=== PATIENT | male | born 2000 ===

== ENCOUNTER 2022-07-28 14:02 | Emergency (ER) | payer SELFPAY ==
[~2022-07-28] VITALS: Ht 182.8 cm; Wt 72.5 kg
--- NOTE | 2022-07-28 14:21 | ED GI ---
General Chief Complaint: Abdominal/GI Problems Stated Complaint: ABD PAIN Nursing Triage Note: THURSDAY STARTED HAVING ABDOMINAL PAIN WITH NAUSEA AND VOMTING. 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 Patient states he drank alcohol and used drugs at that time. He states he has had frequent vomiting since that time. He denies any diarrhea. States he has been unable to eat or drink much since the symptoms began. Denies any blood in the vomit or stools. States he does frequently use cannabis. Denies any fever. Allergies and Home Medications Allergies Coded Allergies: No Known Drug Allergies (Unverified , 07/28/22) Patient Home Medication List Home Medication List Reviewed: Yes Ondansetron (Ondansetron Odt) 4 Mg Tab.rapdis, 4 MG SL Q4H PRN for NAUSEA/VOMITING Prescribed by: Hernesto Daniel on 07/28/22 1641 Pantoprazole Sodium (Protonix) 40 Mg Tablet.dr, 40 MG PO DAILY Prescribed by: Hernesto Daniel on 07/28/22 1641 Review of Systems Review of Systems Constitutional: no symptoms reported EENTM: No Symptoms Reported Respiratory: No Symptoms Reported Cardiovascular: No Symptoms Reported Gastrointestinal: See HPI Genitourinary: No Symptoms Reported Musculoskeletal: no symptoms reported Skin: no symptoms reported Psychiatric/Neurological: No Symptoms Reported Past Terjfxg-Oohxot-Eekcsl Hx Patient Social History Tobacco Use?: No Use of E-Cig and/or Vaping dev: No Substance use?: No Substance type: Marijuana Substance frequency: Daily Alcohol Use?: Yes Alcohol Frequency: Once in a while Pt feels they are or have been: No Immunizations Up To Date Influenza Vaccine Up-to-Date: No; Not Current First/Initial COVID19 Vaccinat: NONE Past Medical History Surgery/Hospitalization HX: DENIES MEDICAL HX Physical Exam Vital Signs Vital Signs - First Documented 07/28/22 14:05 Temp 37.0 Pulse 75 Resp 18 B/P (MAP) 138/85 (102) Pulse Ox 100 O2 Delivery Room Air Capillary Refill : Less Than 3 Seconds Height/Weight/BMI Height: '" Weight: lbs. oz. 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, no motor/sensory deficits, alert Skin: normal color, warm/dry Progress/Results/Core Measures Results/Orders Lab Results Laboratory Tests Test 07/28/22 14:20 07/28/22 14:35 Range/Units White Blood Count 13.0 H 4.3-11.0 10^3/uL Red Blood Count 5.57 H 4.30-5.52 10^6/uL Hemoglobin 16.6 13.3-17.7 g/dL Hematocrit 49 40-54 % Mean Corpuscular Volume 88 80-99 fL Mean Corpuscular Hemoglobin 30 25-34 pg Mean Corpuscular Hemoglobin Concent 34 32-36 g/dL Red Cell Distribution Width 11.9 10.0-14.5 % Platelet Count 255 130-400 10^3/uL Mean Platelet Volume 10.7 9.0-12.2 fL Immature Granulocyte % (Auto) 0 % Neutrophils (%) (Auto) 83 H 42-75 % Lymphocytes (%) (Auto) 10 L 12-44 % Monocytes (%) (Auto) 4 0-12 % Eosinophils (%) (Auto) 2 0-10 % Basophils (%) (Auto) 0 0-10 % Neutrophils # (Auto) 10.8 H 1.8-7.8 10^3/uL Lymphocytes # (Auto) 1.3 1.0-4.0 10^3/uL Monocytes # (Auto) 0.5 0.0-1.0 10^3/uL Eosinophils # (Auto) 0.2 0.0-0.3 10^3/uL Basophils # (Auto) 0.1 0.0-0.1 10^3/uL Immature Granulocyte # (Auto) 0.0 0.0-0.1 10^3/uL Sodium Level 139 135-145 MMOL/L Potassium Level 3.1 L 3.6-5.0 MMOL/L Chloride Level 99 98-107 MMOL/L Carbon Dioxide Level 24 21-32 MMOL/L Anion Gap 16 H 5-14 MMOL/L Blood Urea Nitrogen 21 H 7-18 MG/DL Creatinine 1.21 0.60-1.30 MG/DL Estimat Glomerular Filtration Rate 86 BUN/Creatinine Ratio 17 Glucose Level 131 H 70-105 MG/DL Calcium Level 9.8 8.5-10.1 MG/DL Corrected Calcium 8.5-10.1 MG/DL Total Bilirubin 1.4 H 0.1-1.0 MG/DL Aspartate Amino Transf (AST/SGOT) 23 5-34 U/L Alanine Aminotransferase (ALT/SGPT) 29 0-55 U/L Alkaline Phosphatase 72 40-136 U/L Total Protein 8.4 H 6.4-8.2 GM/DL Albumin 4.7 H 3.2-4.5 GM/DL Lipase 13 8-78 U/L Serum Alcohol < 10 <10 MG/DL Urine Color YELLOW Urine Clarity CLEAR Urine pH 8.5 5-9 Urine Specific Ideal 1.015 L 1.016-1.022 Urine Protein TRACE H NEGATIVE Urine Glucose (UA) NEGATIVE NEGATIVE Urine Ketones 1+ H NEGATIVE Urine Nitrite NEGATIVE NEGATIVE Urine Bilirubin NEGATIVE NEGATIVE Urine Urobilinogen 2.0 < = 1.0 MG/DL Urine Leukocyte Esterase NEGATIVE NEGATIVE Urine RBC (Auto) NEGATIVE NEGATIVE Urine RBC NONE /HPF Urine WBC NONE /HPF Urine Squamous Epithelial Cells NONE /HPF Urine Crystals PRESENT H /LPF Urine Amorphous Sediment LARGE MISSY PHOSPHATE H /LPF Urine Bacteria NEGATIVE /HPF Urine Casts NONE /LPF Urine Mucus NEGATIVE /LPF Urine Culture Indicated NO Urine Opiates Screen NEGATIVE NEGATIVE Urine Oxycodone Screen NEGATIVE NEGATIVE Urine Methadone Screen NEGATIVE NEGATIVE Urine Propoxyphene Screen NEGATIVE NEGATIVE Urine Barbiturates Screen NEGATIVE NEGATIVE Ur Tricyclic Antidepressants Screen NEGATIVE NEGATIVE Urine Phencyclidine Screen NEGATIVE NEGATIVE Urine Amphetamines Screen NEGATIVE NEGATIVE Urine Methamphetamines Screen NEGATIVE NEGATIVE Urine Benzodiazepines Screen NEGATIVE NEGATIVE Urine Cocaine Screen POSITIVE H NEGATIVE Urine Cannabinoids Screen POSITIVE H NEGATIVE My Orders Orders - HERNESTO DANIEL GLAZIER STRUCTURAL GLASS Cbc With Automated Diff (07/28/22 14:21) Comprehensive Metabolic Panel (07/28/22 14:21) Lipase (07/28/22 14:21) Alcohol (07/28/22 14:21) Urinalysis (07/28/22 14:21) Drug Screen Stat (Urine) (07/28/22 14:21) Iv/Invasive Line Insertion .IV INSERT (07/28/22 14:21) Ns Iv 1000 Ml (Sodium Chloride 0.9%) (07/28/22 14:30) Promethazine Injection (Phenergan Injec (07/28/22 14:30) Ns Iv 1000 Ml (Sodium Chloride 0.9%) (07/28/22 15:15) Ketorolac Injection (Toradol Injection) (07/28/22 16:00) Medications Given in ED Current Medications Medications Dose Ordered Sig/Theodore Route Start Time Stop Time Status Last Admin Dose Admin Ketorolac Tromethamine 15 mg ONCE ONCE IVP 07/28/22 16:00 07/28/22 16:01 DC 07/28/22 16:03 15 MG Promethazine HCl 25 mg ONCE ONCE IVP 07/28/22 14:30 07/28/22 14:31 DC 07/28/22 14:35 25 MG Vital Signs/I&O 07/28/22 14:05 Temp 37.0 Pulse 75 Resp 18 B/P (MAP) 138/85 (102) Pulse Ox 100 O2 Delivery Room Air Blood Pressure Mean: 102 Progress Progress Note : Progress Note Patient is nontoxic and well-hydrated on exam. Abdominal exam is notable for so me mild upper abdominal pain without particularly focal tenderness to palpation. No rigidity/guarding/distention appreciated. Vital signs are notable for mild tachycardia. Laboratory evaluation notable for very slightly elevated anion gap as well as some very mild hypokalemia. Patient is slightly hemoconcentrated on CBC. Very mild leukocytosis noted of 13,000 which is likely reactive from the recurrent emesis. UDS positive for cannabinoids and cocaine. Patient had marked improvement in symptoms after 2 L of normal saline as well as a dose of Phenergan. Patient was also given ketorolac for the pain. Patient will be discharged home. Return precautions for urgent symptomology discussed. Follow- up with PCP. 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 Departure Impression Primary Impression: Nausea and vomiting Qualified Codes: R11.2 - Nausea with vomiting, unspecified Additional Impression: Epigastric abdominal pain Disposition: HOME, SELF-CARE Condition: Improved Departure-Patient Inst. Decision time for Depature: 16:35 Patient Instructions: Nausea and Vomiting, Adult (DC) Scripts Pantoprazole Sodium (Protonix) 40 Mg Tablet.dr 40 MG PO DAILY for 14 Days, #14 TAB 0 Refills Prov: HERNESTO DANIEL APRN 07/28/22 Ondansetron (Ondansetron Odt) 4 Mg Tab.rapdis 4 MG SL Q4H PRN for NAUSEA/VOMITING for 5 Days, #20 TAB 0 Refills Prov: HERNESTO DANIEL APRN 07/28/22 HERNESTO DANIEL APRN Jul 28, 2022 14:21
[2022-07-28 14:30] LABS: BASOPHILS # (AUTO) 0.1 10^3/uL (0.0-0.1); BASOPHILS % (AUTO) 0 % (0-10); EOSINOPHILS # (AUTO) 0.2 10^3/uL (0.0-0.3); EOSINOPHILS % (AUTO) 2 % (0-10); HEMATOCRIT 49 % (40-54); HEMOGLOBIN 16.6 g/dL (13.3-17.7); LYMPHOCYTES # (AUTO) 1.3 10^3/uL (1.0-4.0); LYMPHOCYTES % (AUTO) 10 % (12-44); MEAN CORPUSCULAR HEMOGLOBIN 30 pg (25-34); MEAN CORPUSCULAR HGB CONC 34 g/dL (32-36); MEAN CORPUSCULAR VOLUME 88 fL (80-99); MEAN PLATELET VOLUME 10.7 fL (9.0-12.2); MONOCYTES # (AUTO) 0.5 10^3/uL (0.0-1.0); MONOCYTES % (AUTO) 4 % (0-12); NEUTROPHILS # (AUTO) 10.8 10^3/uL (1.8-7.8); NEUTROPHILS % (AUTO) 83 % (42-75); PLATELET COUNT 255 10^3/uL (130-400)
[2022-07-28] MEDS ORDERED: NS IV 1000 ML 1,000 ML IV SCH ×2 (14:30→15:15)
[2022-07-28] MEDS ORDERED: PROMETHAZINE INJ 25 MG/ML (PHENERGAN) AMP IVP ONE (14:30)
[2022-07-28 14:39] LABS: ALBUMIN 4.7 GM/DL (3.2-4.5)
[2022-07-28 14:40] LABS: CHLORIDE 99 MMOL/L (98-107); POTASSIUM 3.1 MMOL/L (3.6-5.0); SODIUM 139 MMOL/L (135-145)
[2022-07-28 14:41] LABS: CALCIUM 9.8 MG/DL (8.5-10.1)
[2022-07-28 14:42] LABS: GLUCOSE 131 MG/DL (70-105); TOTAL PROTEIN 8.4 GM/DL (6.4-8.2)
[2022-07-28 14:43] LABS: CARBON DIOXIDE 24 MMOL/L (21-32)
[2022-07-28 14:44] LABS: BILIRUBIN,TOTAL 1.4 MG/DL (0.1-1.0)
[2022-07-28 14:45] LABS: ALKALINE PHOSPHATASE 72 U/L (40-136)
[2022-07-28 14:46] LABS: CREATININE SERUM 1.21 MG/DL (0.60-1.30); GFR ESTIMATED 86
[2022-07-28 14:47] LABS: BUN/CREATININE RATIO 17
[2022-07-28 14:47] LABS: BILIRUBIN,URINE NEGATIVE (NEGATIVE); CLARITY,URINE CLEAR; COLOR,URINE YELLOW; GLUCOSE, URINE (UA) NEGATIVE (NEGATIVE); KETONES,URINE 1+ (NEGATIVE); LEUKOCYTE ESTERASE ,URINE NEGATIVE (NEGATIVE); NITRITE,URINE NEGATIVE (NEGATIVE); PH,URINE 8.5 (5-9); PROTEIN,URINE TRACE (NEGATIVE)
[2022-07-28 14:48] LABS: ALANINE AMINOTRANSFERASE 29 U/L (0-55)
[2022-07-28 14:49] LABS: LIPASE 13 U/L (8-78)
[2022-07-28 14:53] LABS: AMORPHOUS SEDIMENT,UR LARGE AMOR PHOSPHATE /LPF; BACTERIA,URINE NEGATIVE /HPF
[2022-07-28 15:01] LABS: AMPHETAMINE SCREEN, URINE NEGATIVE (NEGATIVE); BARBITURATE SCREEN URINE NEGATIVE (NEGATIVE); BENZODIAZEPINES SCREEN URINE NEGATIVE (NEGATIVE); CANNABINOID SCREEN, URINE POSITIVE (NEGATIVE); COCAINE SCREEN URINE POSITIVE (NEGATIVE); METHADONE STAT NEGATIVE (NEGATIVE); OPIATE SCREEN URINE NEGATIVE (NEGATIVE); OXYCODONE STAT NEGATIVE (NEGATIVE); PROPOXYPHENE STAT NEGATIVE (NEGATIVE); TRICYCLIC ANTIDEPRESSANTS SCRE NEGATIVE (NEGATIVE)
[2022-07-28] MEDS ORDERED: KETOROLAC 30 MG/ML VIAL IVP ONE (16:00)
[2022-07-28] MEDS ORDERED: ONDA4TAB11 SL (16:41)
[2022-07-28] MEDS ORDERED: PANT40TA2 PO (16:41)
[2022-07-28 16:55] VITALS: BP 134/72
== END 2022-07-28 16:55 | disposition home or self-care (01) ==
LOC: ER 14:06
DX: R10.13 Epigastric pain (principal); R11.2 Nausea with vomiting, unspecified; E87.6 Hypokalemia; D72.829 Elevated white blood cell count, unspecified; R00.0 Tachycardia, unspecified; E87.20 Acidosis, unspecified; Z28.310 Unvaccinated for COVID-19
CPT/HCPCS: 80053; 80306; 81000; 83690; 85025; 99284; G0480; 36415; 80320

== ENCOUNTER 2023-02-26 16:44 | Emergency (ER) | payer SELFPAY ==
[~2023-02-26] VITALS: Ht 188 cm; Wt 70.0 kg
[~2023-02-26 16:44] MED LIST: ONDA4TAB11 SL; PANT40TA2 PO
[2023-02-26 18:13] LABS: BASOPHILS # (AUTO) 0.1 10^3/uL (0.0-0.1); BASOPHILS % (AUTO) 1 % (0-10); EOSINOPHILS % (AUTO) 0 % (0-10); HEMATOCRIT 49 % (40-54); LYMPHOCYTES % (AUTO) 10 % (12-44); MEAN CORPUSCULAR HEMOGLOBIN 30 pg (25-34); MEAN CORPUSCULAR HGB CONC 35 g/dL (32-36); MEAN CORPUSCULAR VOLUME 86 fL (80-99); MEAN PLATELET VOLUME 11.4 fL (9.0-12.2); MONOCYTES # (AUTO) 0.3 10^3/uL (0.0-1.0); MONOCYTES % (AUTO) 3 % (0-12); NEUTROPHILS # (AUTO) 8.4 10^3/uL (1.8-7.8); NEUTROPHILS % (AUTO) 86 % (42-75); PLATELET COUNT 274 10^3/uL (130-400); WHITE BLOOD COUNT 9.9 10^3/uL (4.3-11.0)
[2023-02-26 18:14] LABS: BILIRUBIN,URINE NEGATIVE (NEGATIVE); CLARITY,URINE SL CLOUDY; COLOR,URINE YELLOW; GLUCOSE, URINE (UA) NEGATIVE (NEGATIVE); KETONES,URINE 1+ (NEGATIVE); LEUKOCYTE ESTERASE ,URINE NEGATIVE (NEGATIVE); NITRITE,URINE NEGATIVE (NEGATIVE); PH,URINE 8.5 (5-9); PROTEIN,URINE TRACE (NEGATIVE)
[2023-02-26] MEDS ORDERED: ONDANSETRON 4 MG/2 ML (SDV) Z0FRAN ONE (18:16)
[2023-02-26 18:18] LABS: CHLORIDE 104 MMOL/L (98-107); POTASSIUM 3.6 MMOL/L (3.6-5.0); SODIUM 139 MMOL/L (135-145)
[2023-02-26 18:19] LABS: AMYLASE 48 U/L (25-125); CALCIUM 10.3 MG/DL (8.5-10.1)
[2023-02-26 18:20] LABS: GLUCOSE 139 MG/DL (70-105); TOTAL PROTEIN 8.7 GM/DL (6.4-8.2)
[2023-02-26 18:21] LABS: AMORPHOUS SEDIMENT,UR LARGE AMOR PHOSPHATE /LPF; BACTERIA,URINE NEGATIVE /HPF
[2023-02-26 18:21] LABS: CARBON DIOXIDE 21 MMOL/L (21-32)
[2023-02-26 18:22] LABS: BILIRUBIN,TOTAL 0.7 MG/DL (0.1-1.0)
[2023-02-26 18:24] LABS: ALKALINE PHOSPHATASE 88 U/L (40-136); GFR ESTIMATED 87
[2023-02-26 18:25] LABS: BUN/CREATININE RATIO 16
[2023-02-26 18:27] LABS: ALANINE AMINOTRANSFERASE 27 U/L (0-55); LIPASE 12 U/L (8-78)
[2023-02-26] MEDS ORDERED: PANTOPRAZOLE 40 MG (PROTONIX) VIAL IV ONE (18:30)
[2023-02-26] MEDS ORDERED: fentaNYL INJ 100 MCG/2 ML AMP IVP ONE (18:30)
[2023-02-26] MEDS ORDERED: ONDANSETRON 4 MG/2 ML (SDV) Z0FRAN IVP ONE (18:30)
[2023-02-26] MEDS ORDERED: LACTATED RINGERS 1,000 ML IV ONE (18:30)
--- NOTE | 2023-02-26 18:30 | ED Abdominal Pain ---
General Chief Complaint: Abdominal/GI Problems Stated Complaint: ABDOMINAL PAIN|VOMITING Nursing Triage Note: PT AMBULATE TO ROOM 04 WITHOUT DIFFICULTY WITH C/O N/V. 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 He has had abdominal discomfort for a few months. He reports the vomiting started this morning and has been excessive. He continues to vomit in the emergency room. He took some medication for "heartburn" but it was not effective today. Symptoms do not change with eating. He reports pain is 10 out of 10. He denies any fever. The video certified court/medical interpreter service was used for this interview. Review of chart reveals a similar episode for which he was treated last fall. Patient denies any alcohol consumption within the last 3 weeks. He reports weekly alcohol consumption prior to that. His last ER visit was associated with "partying" that reportedly included alcohol and marijuana. Allergies and Home Medications Allergies Coded Allergies: No Known Drug Allergies (Unverified , 07/28/22) Patient Home Medication List Home Medication List Reviewed: Yes Omeprazole (Omeprazole) 20 Mg Tablet., 20 MG PO DAILY Prescribed by: BRAEDEN CONTRERAS on 02/26/232005 Ondansetron (Ondansetron Odt) 4 Mg Tab.rapdis, 4 MG SL Q4H PRN for NAUSEA/VOMITING Prescribed by: Boubacar Daniel on 07/28/22 164 Ondansetron (Ondansetron Odt) 4 Mg Tab.rapdis, 4 MG SL Q4H PRN for NAUSEA/VOMITING Prescribed by: BRAEDEN CONTRERAS on 02/26/232005 Pantoprazole Sodium (Protonix) 40 Mg Tablet., 40 MG PO DAILY Prescribed by: Boubacar Daniel on 07/28/22 1641 Review of Systems Review of Systems Constitutional: no symptoms reported EENTM: No Symptoms Reported Respiratory: No Symptoms Reported Cardiovascular: No Symptoms Reported Gastrointestinal: See HPI Genitourinary: No Symptoms Reported Musculoskeletal: no symptoms reported Skin: no symptoms reported Psychiatric/Neurological: No Symptoms Reported Endocrine: No Symptoms Reported Past Udtqcav-Kmfaih-Wieijh Hx Patient Social History Tobacco Use?: No Smoking Status: Never a Smoker Smokeless Tobacco Frequency: Never a User Use of E-Cig and/or Vaping dev: No Use of E-Cig and/or Vaping Manfred: Never a User Substance use?: Yes Substance type: Marijuana Substance frequency: Daily Alcohol Use?: Yes Alcohol Frequency: Several times a month Pt feels they are or have been: No Immunizations Up To Date First/Initial COVID19 Vaccinat: NONE Past Medical History Surgery/Hospitalization HX: DENIES MEDICAL HX Surgeries: No Respiratory: No Cardiac: No Neurological: No Genitourinary: No Gastrointestinal: No Musculoskeletal: No Endocrine: No HEENT: No Cancer: No Did You Recieve Any Treatments: No Psychosocial: No Integumentary: No Physical Exam Vital Signs Vital Signs - First Documented 02/26/23 16:55 Temp 36.3 Pulse 66 Resp 15 B/P (MAP) 138/95 (109) O2 Delivery Room Air Capillary Refill : Less Than 3 Seconds Height/Weight/BMI Height: '" Weight: lbs. oz. kg; 19.00 BMI Method: General Appearance: WD/WN, moderate distress HEENT: PERRL/EOMI, normal ENT inspection, pharynx normal Neck: normal inspection Respiratory: lungs clear, normal breath sounds, no respiratory distress Cardiovascular: regular rate, rhythm, no edema, no murmur Gastrointestinal: normal bowel sounds, soft; No distended; tenderness (Generalized TTP and percussion) Extremities: normal inspection Neurologic/Psychiatric: no motor/sensory deficits, alert, normal mood/affect, oriented x 3 Skin: normal color, warm/dry Progress/Results/Core Measures Results/Orders Lab Results Laboratory Tests Test 02/26/23 16:55 02/26/23 17:10 Range/Units Urine Color YELLOW Urine Clarity SL CLOUDY Urine pH 8.5 5-9 Urine Specific [place] 1.015 L 1.016-1.022 Urine Protein TRACE H NEGATIVE Urine Glucose (UA) NEGATIVE NEGATIVE Urine Ketones 1+ H NEGATIVE Urine Nitrite NEGATIVE NEGATIVE Urine Bilirubin NEGATIVE NEGATIVE Urine Urobilinogen 1.0 < = 1.0 MG/DL Urine Leukocyte Esterase NEGATIVE NEGATIVE Urine RBC (Auto) NEGATIVE NEGATIVE Urine RBC NONE /HPF Urine WBC NONE /HPF Urine Squamous Epithelial Cells NONE /HPF Urine Crystals PRESENT H /LPF Urine Amorphous Sediment LARGE MISSY PHOSPHATE H /LPF Urine Bacteria NEGATIVE /HPF Urine Casts NONE /LPF Urine Mucus NEGATIVE /LPF Urine Culture Indicated NO Urine Opiates Screen NEGATIVE NEGATIVE Urine Oxycodone Screen NEGATIVE NEGATIVE Urine Methadone Screen NEGATIVE NEGATIVE Urine Propoxyphene Screen NEGATIVE NEGATIVE Urine Barbiturates Screen NEGATIVE NEGATIVE Ur Tricyclic Antidepressants Screen NEGATIVE NEGATIVE Urine Phencyclidine Screen NEGATIVE NEGATIVE Urine Amphetamines Screen NEGATIVE NEGATIVE Urine Methamphetamines Screen NEGATIVE NEGATIVE Urine Benzodiazepines Screen NEGATIVE NEGATIVE Urine Cocaine Screen NEGATIVE NEGATIVE Urine Cannabinoids Screen POSITIVE H NEGATIVE White Blood Count 9.9 4.3-11.0 10^3/uL Red Blood Count 5.73 H 4.30-5.52 10^6/uL Hemoglobin 17.0 13.3-17.7 g/dL Hematocrit 49 40-54 % Mean Corpuscular Volume 86 80-99 fL Mean Corpuscular Hemoglobin 30 25-34 pg Mean Corpuscular Hemoglobin Concent 35 32-36 g/dL Red Cell Distribution Width 11.9 10.0-14.5 % Platelet Count 274 130-400 10^3/uL Mean Platelet Volume 11.4 9.0-12.2 fL Immature Granulocyte % (Auto) 0 % Neutrophils (%) (Auto) 86 H 42-75 % Lymphocytes (%) (Auto) 10 L 12-44 % Monocytes (%) (Auto) 3 0-12 % Eosinophils (%) (Auto) 0 0-10 % Basophils (%) (Auto) 1 0-10 % Neutrophils # (Auto) 8.4 H 1.8-7.8 10^3/uL Lymphocytes # (Auto) 1.0 1.0-4.0 10^3/uL Monocytes # (Auto) 0.3 0.0-1.0 10^3/uL Eosinophils # (Auto) 0.0 0.0-0.3 10^3/uL Basophils # (Auto) 0.1 0.0-0.1 10^3/uL Immature Granulocyte # (Auto) 0.0 0.0-0.1 10^3/uL Sodium Level 139 135-145 MMOL/L Potassium Level 3.6 3.6-5.0 MMOL/L Chloride Level 104 98-107 MMOL/L Carbon Dioxide Level 21 21-32 MMOL/L Anion Gap 14 5-14 MMOL/L Blood Urea Nitrogen 19 H 7-18 MG/DL Creatinine 1.20 0.60-1.30 MG/DL Estimat Glomerular Filtration Rate 87 BUN/Creatinine Ratio 16 Glucose Level 139 H 70-105 MG/DL Calcium Level 10.3 H 8.5-10.1 MG/DL Corrected Calcium 8.5-10.1 MG/DL Total Bilirubin 0.7 0.1-1.0 MG/DL Aspartate Amino Transf (AST/SGOT) 22 5-34 U/L Alanine Aminotransferase (ALT/SGPT) 27 0-55 U/L Alkaline Phosphatase 88 40-136 U/L C-Reactive Protein High Sensitivity 0.24 0.00-0.50 MG/DL Total Protein 8.7 H 6.4-8.2 GM/DL Albumin 5.0 H 3.2-4.5 GM/DL Amylase Level 48 25-125 U/L Lipase 12 8-78 U/L Serum Alcohol < 10 <10 MG/DL My Orders Orders - BRAEDEN WILLIAM MD Ondansetron Injection (Zofran Injectio (02/26/23 18:16) Ondansetron Injection (Zofran Injectio (02/26/23 18:30) Fentanyl Inj (Sublimaze Injection) (02/26/23 18:30) Pantoprazole Injection (Protonix Injecti (02/26/23 18:30) Alcohol (02/26/23 18:24) Hs C Reactive Protein (02/26/23 18:24) Drug Screen Stat (Urine) (02/26/23 18:24) Lactated Ringers (Lr 1000 Ml Iv Solution (02/26/23 18:30) Medications Given in ED Current Medications Medications Dose Ordered Sig/Theodore Route Start Time Stop Time Status Last Admin Dose Admin Fentanyl Citrate 50 mcg ONCE ONCE IVP 02/26/23 18:30 02/26/23 18:31 DC 02/26/23 18:39 50 MCG Lactated Ringer's 1,000 ml @ 0 mls/hr Q0M ONCE IV 02/26/23 18:30 02/26/23 18:31 DC 02/26/23 18:39 999 MLS/HR Ondansetron HCl 8 mg ONCE ONCE IVP 02/26/23 18:30 02/26/23 18:31 DC 02/26/23 18:39 8 MG Pantoprazole 40 mg ONCE ONCE IV 02/26/23 18:30 02/26/23 18:31 DC 02/26/23 18:39 40 MG Vital Signs/I&O 02/26/23 02/26/23 16:55 20:19 Temp 36.3 36.3 Pulse 66 66 Resp 15 15 B/P (MAP) 138/95 (109) 138/95 O2 Delivery Room Air Room Air Blood Pressure Mean: 109 Progress Progress Note : Time: 19:55 Progress Note Labs were reviewed and interpreted by me in their entirety including CBC, CMP, lipase, amylase, CRP, urine toxicology, serum alcohol. They were relatively unremarkable with no major concerns. Patient was treated with a liter of LR, Zofran, and Protonix with complete resolution of symptoms. Discharge instructions were reviewed using video certified court/medical interpreter services. Prescriptions were provided as below. Departure Impression Primary Impression: Nausea and vomiting Qualified Codes: R11.2 - Nausea with vomiting, unspecified Additional Impression: Generalized abdominal pain Disposition: HOME, SELF-CARE Condition: Improved Departure-Patient Inst. Decision time for Depature: 19:56 Referrals: NO,LOCAL PHYSICIAN (PCP/Family) Primary Care Physician Patient Instructions: Cannabis hyperemesis syndrome, Severe Abdominal Pain, Adult (DC), Ulcer and Gastritis Diet Add. Discharge Instructions: Start with a clear liquid diet and gradually advance your diet with small quantities of bland food as tolerated. Avoid use of alcohol and marijuana products Use your medications as prescribed. Follow-up with a primary care provider as soon as possible. I suggest contacting the [facility] as they may have bilingual staff to help facilitate your visits. Avoid the following: Eating large meals, eating close to bedtime, caffeine, carbonation, chocolate, citrus fruits and juices, tomato products, spicy foods, fatty/greasy foods, mints, NSAID medications such as ibuprofen or naproxen, alcohol, tobacco, marijuana, and anything else you know irritate your stomach. Return to the emergency room if you have worsening symptoms despite following these instructions. All discharge instructions reviewed with patient and/or family. Voiced understanding. Scripts Ondansetron (Ondansetron Odt) 4 Mg Tab.rapdis 4 MG SL Q4H PRN for NAUSEA/VOMITING, #10 TAB Prov: BRAEDEN WILLIAM MD 02/26/23 Omeprazole (Omeprazole) 20 Mg Tablet. 20 MG PO DAILY, #30 TAB Prov: BRAEDEN WILLIAM MD 02/26/23 BRAEDEN WILLIAM MD February 26, 2023 18:30
[2023-02-26 18:40] LABS: AMPHETAMINE SCREEN, URINE NEGATIVE (NEGATIVE); BARBITURATE SCREEN URINE NEGATIVE (NEGATIVE); BENZODIAZEPINES SCREEN URINE NEGATIVE (NEGATIVE); CANNABINOID SCREEN, URINE POSITIVE (NEGATIVE); COCAINE SCREEN URINE NEGATIVE (NEGATIVE); METHADONE STAT NEGATIVE (NEGATIVE); OPIATE SCREEN URINE NEGATIVE (NEGATIVE); OXYCODONE STAT NEGATIVE (NEGATIVE); PROPOXYPHENE STAT NEGATIVE (NEGATIVE); TRICYCLIC ANTIDEPRESSANTS SCRE NEGATIVE (NEGATIVE)
[2023-02-26] MEDS ORDERED: ONDA4TAB11 SL ×2 (19:59→20:06)
[2023-02-26] MEDS ORDERED: OMEP20TA56 PO ×2 (19:59→20:06)
[2023-02-26 20:19] VITALS: BP 138/95
== END 2023-02-26 20:20 | disposition home or self-care (01) ==
LOC: EDUNIT# 16:44 → ER 16:46
DX: R11.2 Nausea with vomiting, unspecified (principal); R10.84 Generalized abdominal pain; Z28.310 Unvaccinated for COVID-19
CPT/HCPCS: 80053; 80306; 81000; 82150; 83690; 85025; 86141; 99284; G0480; 36415; 80320

== ENCOUNTER 2023-02-27 09:42 | Emergency (ER) | payer SELFPAY ==
[~2023-02-27] VITALS: Ht 182 cm; Wt 77.0 kg
[~2023-02-27 09:42] MED LIST changes: +OMEP20TA56 PO
[2023-02-27] MEDS ORDERED: LACTATED RINGERS 1,000 ML IV STA ×2 (10:07→11:53)
[2023-02-27] MEDS ORDERED: DROPERIDOL 5 MG/2 ML (INAPSINE) ED ONLY! IV ONE (10:15)
[2023-02-27 10:19] LABS: BASOPHILS # (AUTO) 0.1 10^3/uL (0.0-0.1); BASOPHILS % (AUTO) 0 % (0-10); EOSINOPHILS % (AUTO) 0 % (0-10); HEMATOCRIT 48 % (40-54); HEMOGLOBIN 16.8 g/dL (13.3-17.7); LYMPHOCYTES # (AUTO) 1.6 10^3/uL (1.0-4.0); LYMPHOCYTES % (AUTO) 14 % (12-44); MEAN CORPUSCULAR HEMOGLOBIN 30 pg (25-34); MEAN CORPUSCULAR HGB CONC 35 g/dL (32-36); MEAN CORPUSCULAR VOLUME 86 fL (80-99); MEAN PLATELET VOLUME 10.6 fL (9.0-12.2); MONOCYTES # (AUTO) 0.7 10^3/uL (0.0-1.0); MONOCYTES % (AUTO) 5 % (0-12); NEUTROPHILS # (AUTO) 9.6 10^3/uL (1.8-7.8); NEUTROPHILS % (AUTO) 80 % (42-75); PLATELET COUNT 283 10^3/uL (130-400)
[2023-02-27 10:25] LABS: ALBUMIN 4.9 GM/DL (3.2-4.5); CHLORIDE 103 MMOL/L (98-107); POTASSIUM 3.3 MMOL/L (3.6-5.0); SODIUM 140 MMOL/L (135-145)
[2023-02-27 10:26] LABS: CALCIUM 10.1 MG/DL (8.5-10.1)
[2023-02-27 10:27] LABS: GLUCOSE 132 MG/DL (70-105)
[2023-02-27 10:28] LABS: TOTAL PROTEIN 8.5 GM/DL (6.4-8.2)
[2023-02-27 10:29] LABS: BILIRUBIN,TOTAL 0.9 MG/DL (0.1-1.0); CARBON DIOXIDE 21 MMOL/L (21-32)
[2023-02-27 10:31] LABS: ALKALINE PHOSPHATASE 87 U/L (40-136); CREATININE SERUM 1.43 MG/DL (0.60-1.30); GFR ESTIMATED 70
[2023-02-27 10:32] LABS: BUN/CREATININE RATIO 15
[2023-02-27 10:34] LABS: ALANINE AMINOTRANSFERASE 28 U/L (0-55)
--- NOTE | 2023-02-27 10:58 | ED Abdominal Pain ---
General Chief Complaint: Abdominal/GI Problems Stated Complaint: VOMITING Nursing Triage Note: pt presents to ed via pov from home with complaints of continued abdominal pain and vomiting since being seen in ed yesterday when he was diagnosed with gastritis. pt reports he has been unable to fill his prescriptions from yesterday. pt reports he has had vomiting every morning x 1 year. Source of Information: Patient Exam Limitations: No Limitations History of Present Illness Date Seen by Provider: February 27, 2023 Time Seen by Provider: 10:04 Initial Comments Here with report of acute onset of nausea and vomiting with upper abdominal pain. He was seen yesterday for the same and had complete resolution of symptoms after meds and fluids. He went home and woke up this morning and has return of symptoms. Patient admits to smoking marijuana twice daily for a long time he has long history of abdominal pain and vomiting. He did get prescriptions yesterday but he has not had them filled. He is worried that there is something more significant going on. Timing/Duration: 1-3 Hours Severity/Quality: Moderate Location: Epigastric Radiation: No Radiation Activities at Onset: None Modifying Factors: Improves With Vomiting Associated Symptoms: No Fever/Chills; Nausea/Vomiting; No Shortness of Air, No Weakness Allergies and Home Medications Allergies Coded Allergies: No Known Drug Allergies (Unverified , 07/28/22) Patient Home Medication List Home Medication List Reviewed: Yes Omeprazole (Omeprazole) 20 Mg Tablet., 20 MG PO DAILY Prescribed by: BRAEDEN CONTRERAS on 02/26/232005 Ondansetron (Ondansetron Odt) 4 Mg Tab.rapdis, 4 MG SL Q4H PRN for NAUSEA/VOMITING Prescribed by: Boubacar Daniel on 07/28/22 164 Ondansetron (Ondansetron Odt) 4 Mg Tab.rapdis, 4 MG SL Q4H PRN for NAUSEA/VOMITING Prescribed by: BRAEDEN CONTRERAS on 02/26/232005 Pantoprazole Sodium (Protonix) 40 Mg Tablet., 40 MG PO DAILY Prescribed by: Boubacar Daniel on 07/28/22 164 Review of Systems Review of Systems Constitutional: see HPI; No chills, No fever EENTM: No Symptoms Reported Respiratory: Denies Cough, Denies Shortness of Air Cardiovascular: Denies Chest Pain, Denies Edema Gastrointestinal: Abdominal Pain, Nausea, Vomiting Genitourinary: No Symptoms Reported Musculoskeletal: no symptoms reported Skin: no symptoms reported Psychiatric/Neurological: Denies Weakness Past Xejmeoy-Xtvxls-Goawss Hx Patient Social History Tobacco Use?: No Substance use?: Yes Substance type: Marijuana Substance frequency: Once in a while Alcohol Use?: No Pt feels they are or have been: No Immunizations Up To Date First/Initial COVID19 Vaccinat: NONE Second COVID19 Vaccination Gopal: NONE Third COVID19 Vaccination Date: NONE Past Medical History Surgery/Hospitalization HX: DENIES MEDICAL HX Surgeries: No Respiratory: No Cardiac: No Neurological: No Genitourinary: No Gastrointestinal: No Musculoskeletal: No Endocrine: No HEENT: No Cancer: No Did You Recieve Any Treatments: No Psychosocial: No Integumentary: No Family Medical History Reviewed Nursing Family Hx Physical Exam Vital Signs Vital Signs - First Documented 02/27/23 09:59 Temp 36.6 Pulse 75 Resp 18 B/P (MAP) 132/94 (107) Pulse Ox 100 Capillary Refill : Less Than 3 Seconds Height/Weight/BMI Height: '" Weight: lbs. oz. kg; 23.00 BMI Method: General Appearance: WD/WN, no apparent distress HEENT: PERRL/EOMI, pharynx normal Neck: full range of motion, supple Respiratory: lungs clear, normal breath sounds Cardiovascular: regular rate, rhythm, no murmur Gastrointestinal: soft, tenderness (Mild epigastric) Extremities: non-tender, normal inspection Back: normal inspection, no CVA tenderness, no vertebral tenderness Neurologic/Psychiatric: alert, oriented x 3 Skin: normal color, warm/dry Progress/Results/Core Measures Results/Orders Lab Results Laboratory Tests Test 02/27/23 10:13 Range/Units White Blood Count 12.0 H 4.3-11.0 10^3/uL Red Blood Count 5.64 H 4.30-5.52 10^6/uL Hemoglobin 16.8 13.3-17.7 g/dL Hematocrit 48 40-54 % Mean Corpuscular Volume 86 80-99 fL Mean Corpuscular Hemoglobin 30 25-34 pg Mean Corpuscular Hemoglobin Concent 35 32-36 g/dL Red Cell Distribution Width 12.2 10.0-14.5 % Platelet Count 283 130-400 10^3/uL Mean Platelet Volume 10.6 9.0-12.2 fL Immature Granulocyte % (Auto) 0 % Neutrophils (%) (Auto) 80 H 42-75 % Lymphocytes (%) (Auto) 14 12-44 % Monocytes (%) (Auto) 5 0-12 % Eosinophils (%) (Auto) 0 0-10 % Basophils (%) (Auto) 0 0-10 % Neutrophils # (Auto) 9.6 H 1.8-7.8 10^3/uL Lymphocytes # (Auto) 1.6 1.0-4.0 10^3/uL Monocytes # (Auto) 0.7 0.0-1.0 10^3/uL Eosinophils # (Auto) 0.0 0.0-0.3 10^3/uL Basophils # (Auto) 0.1 0.0-0.1 10^3/uL Immature Granulocyte # (Auto) 0.0 0.0-0.1 10^3/uL Sodium Level 140 135-145 MMOL/L Potassium Level 3.3 L 3.6-5.0 MMOL/L Chloride Level 103 98-107 MMOL/L Carbon Dioxide Level 21 21-32 MMOL/L Anion Gap 16 H 5-14 MMOL/L Blood Urea Nitrogen 22 H 7-18 MG/DL Creatinine 1.43 H 0.60-1.30 MG/DL Estimat Glomerular Filtration Rate 70 BUN/Creatinine Ratio 15 Glucose Level 132 H 70-105 MG/DL Calcium Level 10.1 8.5-10.1 MG/DL Corrected Calcium 8.5-10.1 MG/DL Total Bilirubin 0.9 0.1-1.0 MG/DL Aspartate Amino Transf (AST/SGOT) 19 5-34 U/L Alanine Aminotransferase (ALT/SGPT) 28 0-55 U/L Alkaline Phosphatase 87 40-136 U/L Total Protein 8.5 H 6.4-8.2 GM/DL Albumin 4.9 H 3.2-4.5 GM/DL My Orders Orders - SUSANNA TREVINO MD Cbc With Automated Diff (02/27/23 10:07) Comprehensive Metabolic Panel (02/27/23 10:07) Lactated Ringers (Lr 1000 Ml Iv Solution (02/27/23 10:07) Ed Iv/Invasive Line Start (02/27/23 10:07) Droperidol Inj (Ed Only) (Inapsine Inj ( (02/27/23 10:15) Ekg Tracing (02/27/23 10:07) Lactated Ringers (Lr 1000 Ml Iv Solution (02/27/23 11:53) Pantoprazole Injection (Protonix Injecti (02/27/23 14:45) Medications Given in ED Current Medications Medications Dose Ordered Sig/Theodore Route Start Time Stop Time Status Last Admin Dose Admin Droperidol 1.25 mg ONCE ONCE IV 02/27/23 10:15 02/27/23 10:16 DC 02/27/23 10:24 1.25 MG Vital Signs/I&O 02/27/23 09:59 Temp 36.6 Pulse 75 Resp 18 B/P (MAP) 132/94 (107) Pulse Ox 100 Blood Pressure Mean: 107 Progress Progress Note : Progress Note Seen and evaluated. IV, labs and EKG ordered. Droperidol 1.25 mg IV ordered. LR 1 L bolus ordered. Labs include CBC and CMP. Monitor patient. Differential diagnosis includes cannabis associated hyperemesis syndrome, gastritis, electrolyte abnormality, dehydration. 1153: Labs reviewed. Slightly elevated white count but otherwise grossly normal CBC. CMP does show slightly low potassium slight elevated serum creatinine indicating dehydration. We will repeat LR 1 L bolus. Patient has not had any vomiting throughout ED stay thus far. Monitor patient. 1440: Protonix 40 mg IV. Patient is overall feeling much better. I did speak with him through [employer]. We did discuss the importance of marijuana cessation and initiation of the PPI prescription. We did talk about [id number] medicines as well. Overall he is feeling better. We will instruct him to follow-up with surgeon and this was discussed with the patient as well. Discharged home with return precautions. Patient verbalized understanding instructions and agreement with plan. I did verify prescription sent for omeprazole and ondansetron and patient states he will pick those up. Initial ECG Impression Date: February 27, 2023 Initial ECG Impression Time: 10:18 Initial ECG Rate: 58 Initial ECG Rhythm: Normal Sinus Comment Sinus bradycardia with sinus arrhythmia with rate of 58. Right axis deviation and right ventricular hypertrophy. No evidence of ST elevation MS. Interpreted by me. QT normal. Departure Impression Primary Impression: Epigastric abdominal pain Additional Impression: Cannabis hyperemesis syndrome concurrent with and due to cannabis abuse Disposition: HOME, SELF-CARE Condition: Improved Departure-Patient Inst. Decision time for Depature: 14:42 Referrals: HECTOR PAREKH DO NO,LOCAL PHYSICIAN (PCP) Primary Care Physician Add. Discharge Instructions: All discharge instructions reviewed with patient and/or family. Voiced understanding. Take medications as directed. You need to fill your prescriptions and start those as prescribed. You may also take [id number] Pepcid or the generic famotidine 20 mg once or twice daily for upset stomach. It is essential that you stop using marijuana. Follow-up with the surgeon listed or of your choosing for recheck and further evaluation and possible upper endoscopy (scope) if indicated. Return for worse pain, fever, vomiting, weakness, breathing problems or other concerns as needed. Theba los medicamentos segn las indicaciones. Debe surtir barry recetas y comenzarlas segn lo prescrito. Clarissa puede jane Pepcid de venta gigi o el genrico famotidina de 20 mg jean o dos veces al da para el malestar estomacal. Es fundamental que dejes de consumir marihuana. Seguimiento con el cirujano mencionado o de betts eleccin para jean nueva revisin y evaluacin adicional y posible endoscopia digestiva betsey (endoscopio) si est indicado. Regrese si el dolor empeora, la fiebre, los vmitos, la debilidad, los problemas respiratorios u otras inquietudes, segn sea necesario. SUSANNA TREVINO MD February 27, 2023 10:58
[2023-02-27] MEDS ORDERED: PANTOPRAZOLE 40 MG (PROTONIX) VIAL IV ONE (14:45)
[2023-02-27 14:51] VITALS: BP 117/79
== END 2023-02-27 14:51 | disposition home or self-care (01) ==
LOC: EDUNIT# 09:42 → ER 09:44
DX: R10.13 Epigastric pain (principal); F12.10 Cannabis abuse, uncomplicated; R11.2 Nausea with vomiting, unspecified; Z28.310 Unvaccinated for COVID-19
CPT/HCPCS: 36415; 80053; 85025; 93005